=== PATIENT | female | born 1935 | race Caucasian/White ===

== ENCOUNTER 2018-02-27 15:40 | Emergency (ER) | payer MEDICARE, SELFPAY ==
--- NOTE | 2018-02-27 11:26 | EKG12_ITS ---
Test Reason : Blood Pressure : / mmHG Vent. Rate : 067 BPM Atrial Rate : 067 BPM P-R Int : 162 ms QRS Dur : 086 ms QT Int : 388 ms P-R-T Axes : 053 004 042 degrees QTc Int : 409 ms Normal sinus rhythm Normal ECG Confirmed by AI MEYER, MARY CARMEN ([id number]), manuscript editor JOSSELYN DEWEY ([id number]) on 03/07/2018 6:17:02 PM Referred By: Lashae Melendrez Confirmed By:MARY CARMEN CLOUD MD
--- NOTE | 2018-02-27 15:40 | DT_ITS ---
This patient was seen during an EMR downtime February 26, 2018 - March 05, 2018. This patient may have a combination of paper and electronic documentation or all paper documentation. All documentation is viewable within the e-chart portion of [employer] for each patient visit.
--- NOTE | 2018-02-27 16:20 | CT_ITS ---
STUDY: CT BRAIN WITHOUT CONTRAST REASON FOR EXAM: Female, 82 years old. DIZZY, WEAKNESS RADIATION DOSAGE (If Supplied By Facility): CTDIvol = ( 44.99 ) mGy, DLP = ( 779.24 ) mGycm TECHNIQUE: Transaxial CT imaging of the brain was performed without administration of intravenous contrast material. COMPARISON: None. FINDINGS: Normal soft tissue structures. Normal calvarium. There are calcifications around the carotid artery. These are noted in the cavernous carotid arteries. There is mild cerebral atrophy with widening of the extra-axial spaces and ventricular dilatation. There are areas of decreased attenuation within the white matter tracts of the supratentorial brain, consistent with microvascular disease changes. Normal basal ganglia and thalami. Normal brainstem. There is mild cerebellar atrophy. There is no intracranial hemorrhage. There are no findings of an acute ischemic infarction. Normal visualized paranasal sinuses. CT/Brain/Head without Contrast IMPRESSION: Chronic involutional changes of the brain. There are no acute findings. Electronically Signed: Robby Mcallister MD at 21:36 EDT , Service support ,
[2018-03-01 18:34] LABS: Bacteria 0 SEEN /hpf (None Seen); Color, Urine Yellow (Yellow); Glucose, Dipstick Normal (Normal); Ketone-Dipstick Negative (Negative); Leukocyte Esterase-Dipstick 25 /ul (Negative); Mucous, Urine 0 SEEN /hpf (<or=2+); Nitrite-Dipstick Negative (Negative); Occult Blood-Urine Negative /ul (Negative); Protein-Dipstick Negative (Negative); Red Blood Cells-Urine 0 SEEN /hpf (0-5); Specific Gravity, Urine 1.005 (1.002-1.030); Squamous Epithelial Cells - UA 0-5 SEEN /hpf (5-10); Urine Bilirubin Dipstick Negative (Negative); Urine Clarity Clear (Clear); Urine Urobilinogen Normal (Normal); White Blood Cells 0-5 SEEN /hpf (0-5)
[2018-03-01 21:50] LABS: Anion Gap 3 (5-15); BUN 11 mg/dL (7-18); BUN/Creat Ratio 15.1 RATIO (10-20); Calcium,Total 8.7 mg/dL (8.5-10.1); Chloride 107 mmol/L (98-107); Creatinine, Serum 0.73 mg/dL (0.55-1.02); EST Glomerular Filtration Rate 81 mL/min (>60); Est Glom Filt Rate - Afr Amer 98 mL/min (>60); Glucose 84 mg/dL (74-106); Potassium 3.9 mmol/L (3.5-5.1); Sodium Level 141 mmol/L (136-145)
[2018-03-02 11:06] LABS: Hematocrit 35.8 % (37-47); Mean Corp Hgb Conc 33.5 g/gl (32-36); Mean Corpuscular Hgb 31.3 pg (27.0-32.0); Mean Corpuscular Volume 93.2 fL (81-99); Mean Platelet Vol. 9.2 fl (6.2-12.0); Platelet Count 247 K/mm3 (150-450); RBC Distribution Width CV 13.5 % (11.6-14.6); RBC Distribution Width SD 45.9 fl (35.1-43.9); Red Blood Count 3.84 M/mm3 (4.2-5.4); White Blood Count 6.2 K/mm3 (4.4-11.0)
[2018-03-02 11:07] LABS: Absolute Lymphocyte Count 2.43 X10^3/ul (0.83-4.51); Absolute Neutrophil Count 3.2 X10^3/uL (2.0-7.7); Basophil# 0.03 X10^3/uL; Basophil% 0.5 % (0-1); Eosinophil# 0.12 X10^3/uL; Eosinophils% 1.9 % (0-5); Lymphocyte # 2.43 X10^3/ul (4.0); Lymphocyte % 39.2 % (19-41); Monocyte# 0.37 X10^3/uL; Neutrophil # 3.24 X10^3/uL (2.7-7.7); Neutrophil % 52.2 % (47-70); POSITIVE COUNT NO; POSITIVE DIFFERENTIAL NO; POSITIVE MORPHOLOGY NO
== END 2018-02-27 19:40 | disposition home or self-care (01) ==
LOC: ED 03-01 08:02
PROVIDERS: Emergency Provider Emergency Medicine; Family Provider Internal Medicine; PCP Internal Medicine
DX: R42 Dizziness and giddiness (principal); R53.83 Other fatigue; R53.81 Other malaise; F41.9 Anxiety disorder, unspecified; Z79.899 Other long term (current) drug therapy
CPT/HCPCS: 36415; 70450; 80048; 81001; 84484; 85025; 93005; 96360; 96361; 99284; J7030; A4216

== ENCOUNTER → 2018-05-21 08:26 | Outpatient (CLI) | payer MEDICARE, SELFPAY | PROVIDERS: Family Provider Internal Medicine; PCP Internal Medicine; Visit Provider Internal Medicine | DX: D64.9 Anemia, unspecified (principal) | CPT/HCPCS: 82274 ==

== ENCOUNTER → 2018-12-26 07:35 | Outpatient (CLI) | payer MEDICARE, SELFPAY ==
[2018-12-18 08:48] VITALS: BMI 22.6
--- NOTE | 2018-12-26 07:37 | US_ITS ---
STUDY: SOFT TISSUE NECK ULTRASOUND REASON FOR EXAM: Female, 83 years old. Palpable left neck lump TECHNIQUE: Ultrasound evaluation of the soft tissues of the left neck was performed with real-time and static pickens-scale imaging. COMPARISON: None. FINDINGS: There is a 1.6 x 1.4 x 1.7 cm hypoechoic structure within the supraclavicular region at the base of the left neck. There is internal vascular flow seen on color Doppler imaging. There is no definitive internal architecture. US/Head/Neck Soft Tissue IMPRESSION: 1.6 x 1.4 x 1.7 cm hypoechoic structure in the left supraclavicular fossa, likely representing ceci mass which does not demonstrate preservation of normal fatty hilum. Percutaneous sampling is recommended for definitive characterization. Electronically Signed: Humberto Hamlin MD at 5:02 EDT Tel , Service support ,
== END ==
PROVIDERS: Family Provider Internal Medicine; PCP Internal Medicine; Referring Provider Internal Medicine; Visit Provider Internal Medicine
DX: R22.1 Localized swelling, mass and lump, neck (principal)
CPT/HCPCS: 76536

== ENCOUNTER → 2019-01-03 09:30 | Outpatient (CLI) | payer MEDICARE, SELFPAY ==
[2019-01-03 09:08] VITALS: BMI 22.6
--- NOTE | 2019-01-03 09:32 | RAD_ITS ---
STUDY: X-RAY - LEFT CLAVICLE REASON FOR EXAM: Female, 83 years old. Palpable lump over the left sternoclavicular region times one month TECHNIQUE: 2 view(s) of the clavicle. COMPARISON: None. FINDINGS: Normal clavicle. There are mild arthritic changes of the acromioclavicular joint. Normal visualized sternoclavicular articulation. Normal visualized pulmonary apex. RAD/Clavicle IMPRESSION: Mild arthritic changes of the left AC joint. The region of the sternoclavicular articulation appears within normal limits. Electronically Signed: Kiel Maharaj MD at 23:53 EDT , Service support ,
== END ==
PROVIDERS: Family Provider Internal Medicine; PCP Internal Medicine; Referring Provider Surgery; Visit Provider Surgery
DX: M95.8 Other specified acquired deformities of musculoskeletal system (principal)
CPT/HCPCS: 73000

== ENCOUNTER → 2020-03-04 09:46 | Outpatient (CLI) | payer MEDICARE, SELFPAY ==
[2020-03-04 09:03] VITALS: BMI 22.6
[2020-03-04 12:29] LABS: Absolute Lymphocyte Count 1.79 X10^3/uL (0.83-4.51); Absolute Neutrophil Count 3.3 X10^3/uL (2.0-7.7); Basophil# 0.03 X10^3/uL; Basophil% 0.5 % (0-1); Eosinophil# 0.05 X10^3/uL; Eosinophils% 0.9 % (0-5); Hematocrit 35.1 % (37-47); Hemoglobin 11.5 g/dL (12.0-15.0); Lymphocyte # 1.79 X10^3/ul (4.0); Lymphocyte % 32.5 % (19-41); Mean Corp Hgb Conc 32.8 g/dL (32-36); Mean Corpuscular Hgb 31.3 pg (27.0-32.0); Mean Corpuscular Volume 95.6 fL (81-99); Mean Platelet Vol. 9.7 fl (6.2-12.0); Monocyte# 0.37 X10^3/uL; Monocyte% 6.7 % (0-10); NRBC Flagged by Analyzer 0 % (0-5); Neutrophil # 3.25 X10^3/uL (2.7-7.7); Neutrophil % 59.2 % (47-70); Platelet Count 242 K/mm3 (150-450); RBC Distribution Width CV 13.3 % (11.6-14.6); RBC Distribution Width SD 46.4 fl (35.1-43.9); Red Blood Count 3.67 M/mm3 (4.2-5.4); White Blood Count 5.5 K/mm3 (4.4-11.0)
[2020-03-04 13:08] LABS: ALB/GLOB Ratio 1.2 RATIO (0.9-2.4); AST(SGOT) 17 U/L (15-37); Alanine Aminotransfer ALT/SGPT 20 U/L (13-56); Alkaline Phosphatase 51 U/L (45-117); Anion Gap 5 (5-15); BUN 13 mg/dL (7-18); BUN/Creat Ratio 17.8 RATIO (10-20); Calcium,Total 9.1 mg/dL (8.5-10.1); Chloride 105 mmol/L (98-107); Creatinine, Serum 0.73 mg/dL (0.55-1.02); EST Glomerular Filtration Rate 81 mL/min (>60); Est Glom Filt Rate - Afr Amer 98 mL/min (>60); Globulin 3.2 g/dL (2.2-4.2); Glucose 99 mg/dL (74-106); Potassium 4.1 mmol/L (3.5-5.1); Protein, Total 7.2 g/dL (6.4-8.2); Sodium Level 139 mmol/L (136-145)
== END ==
PROVIDERS: PCP Internal Medicine; Referring Provider Internal Medicine; Visit Provider Internal Medicine
DX: I10 Essential (primary) hypertension (principal); K59.00 Constipation, unspecified
CPT/HCPCS: 36415; 80053; 85025

== ENCOUNTER → 2020-03-17 08:39 | Outpatient (CLI) | payer MEDICARE, SELFPAY ==
[2020-03-04 09:03] VITALS: BMI 22.6
--- NOTE | 2020-03-17 08:45 | BD_ITS ---
STUDY: DUAL ENERGY X-RAY ABSORPTIOMETRY / DXA REASON FOR EXAM: Female, 84 years old. 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 COMPARISON: None. FINDINGS: Lumbar Spine (L1-L4): g/cm2 (0.830) / T-score (-2.9) / Z-score (-1.0) Findings are suggestive of osteoporosis with a high fracture risk. Left Femur Total: g/cm2 (0.598) / T-score (-3.3) / Z-score (-1.0) Left Femoral Neck: g/cm2 (0.588) / T-score (-3.2) / Z-score (-0.9) Right Femur Total: g/cm2 (0.574) / T-score (-3.4) / Z-score (-1.2) Right Femoral Neck: g/cm2 (0.612) / T-score (-3.1) / Z-score (-0.7) BD/Dexa Bone Density Study IMPRESSION: The patient is considered osteoporotic as outlined below according to World Lior Organization (WHO) criteria with a high fracture risk. Reference Information: The T-score is the number of standard deviations above or below the standard which is normal for young adults at their peak bone mineral density. The World Health Organization (WHO) interprets the T-scores as follows: Above -1 Normal bone density Between -1 and -2.5 Osteopenia Equal to / or below -2.5 Osteoporosis As a practical clinical guideline, osteopenia may be graded as follows: Mild -1 through -1.5 Moderate -1.6 through -2.0 Severe -2.1 through -2.4 The Z-score is the number of standard deviations above or below age-matched controls. A Z-score of less than -1.5 would be considered abnormal. References: 1. NIH Osteoporosis and Related Bone Diseases http://www.osteo.org 2. International Society for Clinical Densitometry http://www.iscd.org 3. National Osteoporosis Foundation http://www.nof.org Electronically Signed: Joel Taylor, at 15:34 EDT , Service support ,
== END ==
PROVIDERS: PCP Internal Medicine; Referring Provider Internal Medicine; Visit Provider Internal Medicine
DX: Z78.0 Asymptomatic menopausal state (principal)
CPT/HCPCS: 77080

== ENCOUNTER → 2020-04-15 09:47 | Outpatient (CLI) | payer MEDICARE, SELFPAY ==
[2020-04-15 09:19] VITALS: BMI 22.6
[2020-04-15 14:19] LABS: Vitamin D,25 Hydroxy 30.3 ng/mL
== END ==
PROVIDERS: PCP Internal Medicine; Referring Provider Internal Medicine; Visit Provider Internal Medicine
DX: M81.0 Age-related osteoporosis without current pathological fracture (principal)
CPT/HCPCS: 36415; 82306

== ENCOUNTER → 2021-05-05 09:15 | Outpatient (CLI) | payer MEDICARE, SELFPAY ==
[2021-05-05 08:51] VITALS: BMI 22.5
[2021-05-05 12:16] LABS: Absolute Lymphocyte Count 1.85 X10^3/uL (0.83-4.51); Absolute Neutrophil Count 3.1 X10^3/uL (2.0-7.7); Basophil# 0.04 X10^3/uL; Basophil% 0.7 % (0-1); Eosinophil# 0.04 X10^3/uL; Eosinophils% 0.7 % (0-5); Hematocrit 37.3 % (37-47); Hemoglobin 12.1 g/dL (12.0-15.0); Lymphocyte # 1.85 X10^3/ul (0.83-4.51); Lymphocyte % 33.9 % (19-41); Mean Corp Hgb Conc 32.4 g/dL (32-36); Mean Corpuscular Hgb 31.3 pg (27.0-32.0); Mean Corpuscular Volume 96.4 fL (81-99); Mean Platelet Vol. 9.7 fl (6.2-12.0); Monocyte# 0.42 X10^3/uL; Monocyte% 7.7 % (0-10); NRBC Flagged by Analyzer 0 % (0-5); Neutrophil # 3.09 X10^3/uL (2.7-7.7); Neutrophil % 56.8 % (47-70); Platelet Count 261 K/mm3 (150-450); RBC Distribution Width CV 13.2 % (11.6-14.6); RBC Distribution Width SD 46.5 fl (35.1-43.9); Red Blood Count 3.87 M/mm3 (4.2-5.4); White Blood Count 5.5 K/mm3 (4.4-11.0)
[2021-05-05 12:43] LABS: ALB/GLOB Ratio 1.2 RATIO (0.9-2.4); AST(SGOT) 14 U/L (15-37); Alanine Aminotransfer ALT/SGPT 23 U/L (13-56); Albumin, Serum 3.9 g/dL (3.2-5.0); Alkaline Phosphatase 47 U/L (45-117); Anion Gap 5 (5-15); BUN 12 mg/dL (7-18); BUN/Creat Ratio 18.2 RATIO (10-20); Calcium,Total 8.6 mg/dL (8.5-10.1); Chloride 104 mmol/L (98-107); Cholesterol 225 mg/dL (200); Creatinine, Serum 0.66 mg/dL (0.55-1.02); EST Glomerular Filtration Rate 90 mL/min (>60); Est Glom Filt Rate - Afr Amer 109 mL/min (>60); Globulin 3.2 g/dL (2.2-4.2); Glucose 97 mg/dL (74-106); High Density Lipoprotein 81 mg/dL; Potassium 4.4 mmol/L (3.5-5.1); Protein, Total 7.1 g/dL (6.4-8.2); Sodium Level 139 mmol/L (136-145); Thyroid Stim Hormone (TSH) 0.47 uIU/mL (0.358-3.74); Triglycerides 103 mg/dL; Very Low Density Lipoprotein 21 mg/dL (5-40)
[2021-05-05 14:17] LABS: Vitamin D,25 Hydroxy 33.8 ng/mL
== END ==
PROVIDERS: PCP Internal Medicine; Referring Provider Nurse Practitioner Family; Visit Provider Nurse Practitioner Family
DX: K58.9 Irritable bowel syndrome, unspecified (principal); I10 Essential (primary) hypertension; F41.9 Anxiety disorder, unspecified; E55.9 Vitamin D deficiency, unspecified
CPT/HCPCS: 36415; 80053; 80061; 82306; 84443; 85025

== ENCOUNTER → 2022-05-09 | Outpatient (CLI) | payer MEDICARE, SELFPAY ==
[2022-05-09 12:03] LABS: Absolute Lymphocyte Count 1.62 X10^3/uL (0.83-4.51); Absolute Neutrophil Count 3.6 X10^3/uL (2.0-7.7); Basophil# 0.03 X10^3/uL; Basophil% 0.5 % (0-1); Eosinophil# 0.05 X10^3/uL; Eosinophils% 0.9 % (0-5); Hematocrit 36.5 % (37-47); Hemoglobin 11.5 g/dL (12.0-15.0); Lymphocyte # 1.62 X10^3/ul (0.83-4.51); Lymphocyte % 28.6 % (19-41); Mean Corp Hgb Conc 31.5 g/dL (32-36); Mean Corpuscular Hgb 30.9 pg (27.0-32.0); Mean Corpuscular Volume 98.1 fL (81-99); Mean Platelet Vol. 9.9 fl (6.2-12.0); Monocyte# 0.37 X10^3/uL; Monocyte% 6.5 % (0-10); NRBC Flagged by Analyzer 0 % (0-5); Neutrophil # 3.58 X10^3/uL (2.7-7.7); Neutrophil % 63.3 % (47-70); Platelet Count 277 K/mm3 (150-450); RBC Distribution Width CV 13.4 % (11.6-14.6); RBC Distribution Width SD 48.2 fl (35.1-43.9); Red Blood Count 3.72 M/mm3 (4.2-5.4); White Blood Count 5.7 K/mm3 (4.4-11.0)
[2022-05-09 12:21] LABS: AST(SGOT) 15 U/L (15-37); Alanine Aminotransfer ALT/SGPT 17 U/L (13-56); Albumin, Serum 3.5 g/dL (3.2-5.0); Alkaline Phosphatase 48 U/L (45-117); Anion Gap 4 (5-15); BUN 11 mg/dL (7-18); BUN/Creat Ratio 16.4 RATIO (10-20); Calcium,Total 9.1 mg/dL (8.5-10.1); Chloride 108 mmol/L (98-107); Creatinine, Serum 0.67 mg/dL (0.55-1.02); EST Glomerular Filtration Rate 89 mL/min (>60); Est Glom Filt Rate - Afr Amer 107 mL/min (>60); Globulin 3.6 g/dL (2.2-4.2); Glucose 104 mg/dL (74-106); Potassium 4.7 mmol/L (3.5-5.1); Protein, Total 7.1 g/dL (6.4-8.2); Sodium Level 140 mmol/L (136-145)
== END | disposition home or self-care (01) ==
LOC: BIMLAB 10:25
PROVIDERS: PCP Internal Medicine; Referring Provider Internal Medicine; Visit Provider Internal Medicine
DX: L03.90 Cellulitis, unspecified (principal); M81.0 Age-related osteoporosis without current pathological fracture; R35.1 Nocturia
CPT/HCPCS: 36415; 80053; 82306; 85025

== ENCOUNTER → 2022-05-10 | Outpatient (CLI) | payer MEDICARE, SELFPAY ==
[2022-05-10 10:46] LABS: Bacteria 0 SEEN /hpf (None Seen); Mucous, Urine 0 SEEN /hpf (<or=2+); Red Blood Cells-Urine 0 SEEN /hpf (0-5); Squamous Epithelial Cells - UA 0 SEEN /hpf (5-10); White Blood Cells 0 SEEN /hpf (0-5)
[2022-05-10 12:39] LABS: Color, Urine Yellow (Yellow); Glucose, Dipstick Normal (Normal); Ketone-Dipstick Negative (Negative); Leukocyte Esterase-Dipstick 25 /ul (Negative); Nitrite-Dipstick Negative (Negative); Occult Blood-Urine Negative /ul (Negative); Protein-Dipstick Negative (Negative); Specific Gravity, Urine 1.015 (1.002-1.030); Urine Bilirubin Dipstick Negative (Negative); Urine Clarity Clear (Clear); Urine Urobilinogen Normal (Normal)
== END | disposition home or self-care (01) ==
LOC: LABSPEC 10:44
PROVIDERS: PCP Internal Medicine; Referring Provider Internal Medicine; Visit Provider Internal Medicine
DX: R35.1 Nocturia (principal)
CPT/HCPCS: 81001

== ENCOUNTER → 2022-07-05 | Outpatient (CLI) | payer MEDICARE, SELFPAY ==
[2022-07-05 16:42] LABS: Absolute Lymphocyte Count 2.49 X10^3/uL (0.83-4.51); Basophil# 0.05 X10^3/uL; Basophil% 0.8 % (0-1); Eosinophil# 0.07 X10^3/uL; Eosinophils% 1.1 % (0-5); Hematocrit 34.3 % (37-47); Hemoglobin 11.3 g/dL (12.0-15.0); Lymphocyte # 2.49 X10^3/ul (0.83-4.51); Lymphocyte % 40.8 % (19-41); Mean Corp Hgb Conc 32.9 g/dL (32-36); Mean Corpuscular Hgb 31.6 pg (27.0-32.0); Mean Corpuscular Volume 95.8 fL (81-99); Mean Platelet Vol. 9.5 fl (6.2-12.0); Monocyte# 0.51 X10^3/uL; Monocyte% 8.3 % (0-10); NRBC Flagged by Analyzer 0 % (0-5); Neutrophil # 2.98 X10^3/uL (2.7-7.7); Neutrophil % 48.8 % (47-70); Platelet Count 270 K/mm3 (150-450); RBC Distribution Width CV 13.8 % (11.6-14.6); Red Blood Count 3.58 M/mm3 (4.2-5.4); White Blood Count 6.1 K/mm3 (4.4-11.0)
[2022-07-05 16:54] LABS: T4 Free Direct 1.02 ng/dL (0.76-1.46); Thyroid Stim Hormone (TSH) 0.46 uIU/mL (0.358-3.74)
== END | disposition home or self-care (01) ==
LOC: BIMLAB 15:38
PROVIDERS: PCP Internal Medicine; Visit Provider Internal Medicine
DX: L03.90 Cellulitis, unspecified (principal); F41.9 Anxiety disorder, unspecified; K59.00 Constipation, unspecified
CPT/HCPCS: 36415; 84439; 84443; 85025

== ENCOUNTER 2024-04-02 11:00 | Outpatient (RCR) | payer MEDICARE, SELFPAY ==
--- NOTE | 2024-03-22 10:27 | HP.PTEVAL ---
Patient's Visit Information Visit Information Visit Information: LILIA BORJA is a 88 year old F referred to Physical Therapy by Dr. Bibi Gold MD with a diagnosis of BPPV. Date of Evaluation: 03/22/24 Physical Therapist: Jass Ferreira, DPT, OCS, CSCS Visit Plan Frequency: 1-2x /Week Duration: 4-6 Weeks Plan: 1-2x/week x 4 weeks for positional treatments and then balance as needed, oculomotor. R modified marc today at IE and balance education and care. Subjective Subjective: Its a balance issue. Feels unsteady intermittently without reason. Gets weak and shaky and imbalanced. Seen ENT and eye doctor and those are OK. Bending over can preciptate, also reading sometimes, looking down sometimes and just turning head sometimes. It lasts a couple minutes to 10. Can get it sitting but not lying down. This has been happening for months. Sleep is fine. No pain, but sometimes in R side. No spinning No neuropathy but bottom of feet dont feel right but no DM. Not employed Basic ADLs are getting done, outdoor stuff especially bending to weed is limited. Unsteady. One fall 2 months ago going up steps without a rail carrying something catching toe on step. Hobbies: none, take care of house. Does some ROm exercises in am. Steps at home with railing are good. Objective Objective: Walks slow but steady into PT, no AD needed. Trasnfers I with UE. Steps with rail I. Good cervical AROM without pain, Full UE AROM without pain and 4/5 strength. - L HD + R HD with up torsional slight nystagmus, eye discomfort and dizzyness. Treated with R modified marc. Balance/Special Test Scores Functional Gait Assessment Score: 22 % Disability: 26.6700 CATSIB Score (Max score 120 seconds): 98 Dizziness Score: 50 Goals Goal 1:: abolish dizzy feeling with head movements. Goal Time Frame: 2-4 Weeks Goal 2:: FGA Goal Time Frame: 2-4 Weeks Goal 3:: Pt feel 755 better in overall balance and dizzyness. Goal Time Frame: 4-6 Weeks Goal 4:: 16 or less DHI score Goal Time Frame: 4-6 Weeks Rehabilitation Potential Physical Therapy Diagnosis: dizzyness and balance deficits. Rehabilitation Potential: Good Anticipated Interventions Patient/Client Instruction: Educate patient on: Condition and Risk Factors For the Purpose of:: To increase tolerance to activity/condition/position and To improve gait and locomotor functions Therapeutic Exercise to Include: Balance training Comment: psitional and vestibular For the Purpose of:: To increase tolerance to activity/condition/position and To improve gait and locomotor functions Text: Thank you for the opportunity to evaluate your patient. For Medicare and Medicare HMO plans, please review the plan of care and approve it. It will need to be FAXED BACK to us at [phone] for Medicare purposes. For Medicare only, by signing this I certify the plan of care. Please let me know if there are questions or concerns regarding this plan of care. Physician Signature: Date:
--- NOTE | 2024-06-17 10:20 | HP.PT.NRP ---
Patient Information Patient Information: LILIA BORJA was seen in my office for initial evaluation on 03/22/24. The following Plan of Care was established for this patient: POC Established Initial Frequency: 1-2x /Week Initial Duration: 4-6 Weeks Anticipated Interventions Patient/Client Instruction: Educate patient on: Condition and Risk Factors For the Purpose of:: To increase tolerance to activity/condition/position and To improve gait and locomotor functions Therapeutic Exercise to Include: Balance training For the Purpose of:: To increase tolerance to activity/condition/position and To improve gait and locomotor functions Last Seen Last Seen: This patient was last seen in our office 04/02/24. Pertinent comments regarding their Physical therapy will appear below: Pt seen for 3 visits of vestibular but not improving, was to f/u one more time but did not attend and has been to doctor since then At this point, it has been over two months and I will discontinue from my care. At this point I will be discontinuing this patient from physical therapy. I would be happy to see this patient again in the future if found appropriate by the physician. Thank you! Jass Ferreira, DPT, OCS, CSCS Balance/Gait/Functional tests Balance/Special Test Scores Functional Gait Assessment Score: 22 % Disability: 26.6700 CATSIB Score (Max score 120 seconds): 98 Dizziness Score: 50
== END 2024-04-02 19:00 | disposition home or self-care (01) ==
LOC: PT 11:00
PROVIDERS: PCP Internal Medicine; Referring Provider Family Medicine; Visit Provider Family Medicine
DX: H81.10 Benign paroxysmal vertigo, unspecified ear (principal)
CPT/HCPCS: 97161; 97530

== ENCOUNTER → 2024-04-05 | Outpatient (CLI) | payer MEDICARE, SELFPAY ==
[2024-04-05 17:35] LABS: Absolute Lymphocyte Count 2.08 X10^3/uL (0.83-4.51); Absolute Neutrophil Count 2.7 X10^3/uL (2.0-7.7); Basophil# 0.04 X10^3/uL; Basophil% 0.8 % (0-1); Eosinophil# 0.06 X10^3/uL; Eosinophils% 1.1 % (0-5); Hematocrit 34.5 % (37-47); Hemoglobin 11.1 g/dL (12.0-15.0); Lymphocyte # 2.08 X10^3/ul (0.83-4.51); Lymphocyte % 39.5 % (19-41); Mean Corp Hgb Conc 32.2 g/dL (32-36); Mean Corpuscular Hgb 31.3 pg (27.0-32.0); Mean Corpuscular Volume 97.2 fL (81-99); Mean Platelet Vol. 9.8 fl (6.2-12.0); Monocyte# 0.43 X10^3/uL; Monocyte% 8.2 % (0-10); NRBC Flagged by Analyzer 0 % (0-5); Neutrophil # 2.66 X10^3/uL (2.7-7.7); Neutrophil % 50.4 % (47-70); Platelet Count 259 K/mm3 (150-450); RBC Distribution Width CV 13.3 % (11.6-14.6); RBC Distribution Width SD 47.3 fl (35.1-43.9); Red Blood Count 3.55 M/mm3 (4.2-5.4); White Blood Count 5.3 K/mm3 (4.4-11.0)
[2024-04-05 17:37] LABS: Color, Urine Yellow (Yellow); Glucose, Dipstick Normal (Normal); Ketone-Dipstick Negative (Negative); Leukocyte Esterase-Dipstick 500 /ul (Negative); Nitrite-Dipstick Negative (Negative); Occult Blood-Urine 25 /ul (Negative); Protein-Dipstick 15 mg/dl (Negative); Specific Gravity, Urine 1.015 (1.002-1.030); Urine Bilirubin Dipstick Negative (Negative); Urine Clarity Clear (Clear); Urine Urobilinogen Normal (Normal)
[2024-04-05 17:53] LABS: Vitamin B12 694 pg/mL (211-911); Vitamin D,25 Hydroxy 64.4 ng/mL
[2024-04-05 18:01] LABS: ALB/GLOB Ratio 1.3 RATIO (0.9-2.4); AST(SGOT) 15 U/L (15-37); Alanine Aminotransfer ALT/SGPT 16 U/L (13-56); Albumin, Serum 3.8 g/dL (3.2-5.0); Alkaline Phosphatase 46 U/L (45-117); Anion Gap 5 (5-15); BUN 9 mg/dL (7-18); BUN/Creat Ratio 13.1 RATIO (10-20); Chloride 104 mmol/L (98-107); Creatinine, Serum 0.68 mg/dL (0.55-1.02); EST Glomerular Filtration Rate 86 mL/min (>60); Est Glom Filt Rate - Afr Amer 104 mL/min (>60); Glucose 105 mg/dL (74-106); Potassium 3.7 mmol/L (3.5-5.1); Protein, Total 6.8 g/dL (6.4-8.2); Sodium Level 138 mmol/L (136-145)
== END | disposition home or self-care (01) ==
LOC: MTLAB 15:51
PROVIDERS: PCP Family Medicine; Referring Provider Family Medicine; Visit Provider Family Medicine
DX: R10.31 Right lower quadrant pain (principal); E55.9 Vitamin D deficiency, unspecified
CPT/HCPCS: 36415; 80053; 81002; 82306; 82607; 85025

== ENCOUNTER 2024-04-28 16:48 | Emergency (ER) | payer MEDICARE, SELFPAY ==
[2024-04-28 16:49] VITALS: BP 165/105; PULSE 90; RESP 16; TEMP 36.6; O2SAT 97; BMI 22.1
--- NOTE | 2024-04-28 17:07 | CT_ITS ---
STUDY: CT Abdomen And Pelvis W/ Contrast Injection 04/28/2024 8:04 PM REASON FOR EXAM: Female, 88 years old. Abdominal pain RLQ abdominal pain -- IV PO Contrast Individualized dose optimization techniques were used for this CT. COMPARISON: None. TECHNIQUE: CT Abdomen And Pelvis W/ Contrast Injection Oral and amp; IV Gastrografin and amp; 100mL [id number] FINDINGS: There are atherosclerotic calcifications of visualized coronary arteries. The visualized portions of the heart are within normal limits. Normal liver. Normal gallbladder and extrahepatic biliary system. Normal spleen. Normal pancreas. Normal bilateral adrenal glands. No acute findings of the right kidney. No acute findings of the left kidney. There is a small hiatal hernia. Normal small intestine. There are multiple colonic diverticula consistent with diverticulosis. The appendix is visualized and appears normal. There are calcifications of the abdominal aorta. This is consistent for atherosclerotic disease. There is NO abdominal aortic aneurysm. Vascular workup can be obtained based on clinical correlation. Normal inferior vena cava. Subcentimeter mesenteric lymph nodes. Normal urinary bladder. The uterus is lobulated in contour. There are multiple partially calcified masses in the uterus. This is consistent for a fibroid/ myomatous uterus. Normal abdominal wall. There are diffuse degenerative changes of the visualized lumbar spine. There is bilateral neural foraminal stenosis at L4-5 . There is a Grade 1 anterolisthesis of L4 on L5. CT/Abdomen/Pelvis WITH Contrast IMPRESSION: (NOT LISTED IN ORDER OF SIGNIFICANCE) Unremarkable appendix. There are multiple colonic diverticula consistent with diverticulosis. Other findings as above. Electronically Signed: Robby Mcallister MD at 20:07 EDT ,
--- NOTE | 2024-04-28 17:08 | EDS_ITS ---
HPI HPI - GI History of Present Illness Chief Complaint: Abd Pain Detail of Chief Complaint: Abdominal pain Informant: patient Abdominal Pain/Flank Pain Current Severity: 03/04 Narrative Narrative: Patient presents emergency department complaint of abdominal pain that started 2 months ago. Patient states the pains been off-and-on. She seen her primary care physician who ordered lab work that apparently was unremarkable and also had a CT scan of the abdomen pelvis ordered with contrast but patient did not feel like she could drink the contrast so she never had the scan. Patient states that pain can last up to an hour sometimes. Typically if she has a bowel movement it seems to help resolve the pain. She denies any blood in her stool or black tarry stool. She denies urinary symptoms other than frequency. She has had no fevers. She had some nausea and decreased appetite. She states she is lost about 10 pounds in the last 2 months. Patient is concerned about possibly an ovary or appendicitis. [facility] Medical History (Updated 04/28/24 @ 20:[address] Malena Proctor, DO) Anemia Screening for thyroid disorder Nocturia Osteoporosis Tinnitus Dizziness and giddiness Anxiety IBS (irritable bowel syndrome) Arthritis Home Medications ?Medication ?Instructions ?Recorded ?Last Taken ?Type multivitamin 1 tab PO DAILY 01/03/19 Unknown History latanoprost 0.005 % eye drops 1 drp ophthalmic (eye) DAILY 07/27/20 Unknown History disability placard #1 ea 05/05/21 Unknown Rx lorazepam 0.5 mg tablet (Ativan) 0.5 mg PO DAILY PRN anxiety #30 09/23/21 Unknown Rx tabs mecobalamin (vitamin B12) 5,000 5,000 mcg PO DAILY 09/23/21 Unknown History mcg lozenge soft lens rinse,store solution 05/09/22 Unknown History Allergy/AdvReac Type Severity Reaction Status Date / Time No Known Allergies Allergy Verified 04/28/24 16:49 Family History Mother Anxiety Father Heart disease Myocardial infarction Surgical History History of eye surgery History of tonsillectomy Social History Smoking Status: Never smoker alcohol intake: never what type of physical activity do you participate in: yoga frequency: daily ROS ROS ED Review of Systems ROS Unobtainable: other Constitutional Constitutional ED: Reports lethargy; Denies chills, fever(s), sweats or weight loss Eyes Eyes: Denies blurry vision, change in vision or diplopia ENT ENT ED: Denies rhinorrhea or sore throat Cardiovascular Cardiovascular: Denies chest pain, orthopnea or racing heartbeat Respiratory/Chest Respiratory/Chest: Denies cough, dyspnea, dyspnea on exertion, orthopnea or sputum Gastrointestinal Gastrointestinal: Reports abdominal pain, nausea and other Details: Anorexia ; Denies diarrhea or vomiting Genitourinary Genitourinary ED: Denies dysuria, hematuria or urinary frequency Musculoskeletal Musculoskeletal: Denies arthralgias, back pain, myalgias or neck pain Integumentary Denies abscess, Abrasions or rash Neurologic Neurologic: Denies headache(s) or weakness Psychiatric Psychiatric: Denies anxiety, depression or suicidal thoughts Endocrine Endocrinology: Denies polydipsia, polyphagia or polyuria Hematologic/Lymphatic Hematologic/Lymphatic: Denies easy bleeding, easy bruising or lymphadenopathy Allergic/Immunologic Allergic/Immunologic ED: Denies mouth swelling, tongue swelling or urticaria EXAM Physical Exam Const Vital Signs: 04/28/24 16:49 04/28/24 18:48 Temperature 97.8 F Temperature Source Temporal Pulse Rate 90 78 Respiratory Rate 16 18 Blood Pressure 165/105 H 170/87 H Blood Pressure Mean 125 114 Pulse Ox 97 97 Oxygen Delivery Method Room Air Room Air Positive well nourished and well developed General Appearance ED: well developed and NAD HEENT Reports TM's clear and moist mucous membranes normocephalic and atraumatic; Negative for trauma or tenderness Tympanic Membrane ED: Yes TM's clear Eyes PERRL and EOMs intact bilaterally General Eye ED: Negative for pale conjunctiva or scleral icterus Neck no lymphadenopathy, supple and no JVD General: Negative for tenderness Chest Wall inspection of chest normal and palpation of chest normal Chest: Negative for tenderness Resp normal respiratory effort and clear to auscultation bilaterally Effort and Inspection: Negative for respiratory distress or pain with movement Auscultation: Negative for rhonchi, wheezes or diminished lung sounds Cardio regular rate, regular rhythm, S1 normal heart sound, S2 normal heart sound and no murmurs Peripheral Pulses: pulses 2+ throughout GI normal to inspection, nondistended, normoactive bowel sounds, soft to palpation, non-distended and no masses GI Narrative: Tenderness palpation over the right lower quadrant with some mild guarding. There is no rebound, rigidity, or perineal signs. No masses palpated. Back/Spine no CVA tenderness and no thoracic nor lumbar tenderness Extremity normal to inspection General Extremety ED: Negative for edema General Extremity: Negative for edema Neuro oriented x3, CN's II-XII intact bilaterally, no sensory deficits noted and gait normal Sensorium / Orientation: awake, alert, oriented to person, oriented to place and oriented to time Motor Exam: strength 5/5 throughout and strength abnormal Psych mental status grossly normal Skin no rashes or lesions noted and no wounds MDM MDM MDM Narrative Medical decision making narrative: Patient presents with ongoing abdominal pain that she has had for several months now. Pain usually right lower quadrant and intermittent. She has had some weight loss. In the differential would be sequela of acute appendicitis versus diverticulitis or UTI. Also in the differential would be malignancy. IV line established. CBC with differential obtained showed white count 6.3 with hemoglobin 11.4 and platelet count of 268. Chemistries unremarkable. LFTs were normal. Lactate normal at 1.4. Urinalysis was normal. CT scan of the abdomen pelvis with IV contrast and p.o. contrast essentially showed a fibroid uterus and some diverticulosis but no other significant abnormalities. At this point discussed results with patient and her . Recommended she follow-up with gastroenterology as she has not had a colonoscopy in 14 years. Also recommended she follow-up with [facility] [employer]. Lab Data Attestation: I reviewed the patient's lab results. Labs: Laboratory Results - last 24 hr 04/28/24 04/28/24 17:23 18:22 WBC 6.3 RBC 3.62 L Hgb 11.4 L Hct 35.1 L MCV 97.0 MCH 31.5 MCHC 32.5 RDW Std Deviation 47.9 H RDW Coeff of Teo 13.6 Plt Count 268 MPV 9.4 Immature Gran % (Auto) 0.200 Neut % (Auto) 49.0 Lymph % (Auto) 41.5 H Stone % (Auto) 7.1 Eos % (Auto) 1.1 Baso % (Auto) 1.1 H Absolute Neuts (auto) 3.1 Absolute Lymphs (auto) 2.62 Nucleated RBC % 0 Sodium 141 Potassium 3.8 Chloride 107 Carbon Dioxide 30.0 Anion Gap 4 L BUN 13 Creatinine 0.73 Estim Creat Clear Calc 34.91 Est GFR (MDRD) Af Amer 97 Est GFR (MDRD) Non-Af 80 BUN/Creatinine Ratio 17.9 Glucose 115 H Lactic Acid 1.4 Calcium 8.9 Total Bilirubin 0.50 AST 14 L ALT 16 Alkaline Phosphatase 45 Total Protein 7.0 Albumin 3.8 Globulin 3.2 Albumin/Globulin Ratio 1.2 Urine Color Yellow Urine Clarity Clear Urine pH 6.5 Ur Specific [place] 1.010 Urine Protein Negative Urine Glucose (UA) Normal Urine Ketones Negative Urine Occult Blood 10 H Urine Nitrite Negative Urine Bilirubin Negative Urine Urobilinogen Normal Ur Leukocyte Esterase 500 H Urine RBC 0 SEEN Urine WBC 0-5 SEEN Ur Squamous Epith Cells 0 SEEN Urine Bacteria 0 SEEN Urine Mucus 0 SEEN Radiography Diagnostic Testing: Clinical Impression(s) from Imaging Studies Abdomen/Pelvis CT 04/28/24 17:07 IMPRESSION: (NOT LISTED IN ORDER OF SIGNIFICANCE) Unremarkable appendix. There are multiple colonic diverticula consistent with diverticulosis. Other findings as above. Electronically Signed: Robby Mcallister MD at 20:07 EDT Reading Location ID and State: [facility] / [place] , Service support , Discharge Plan Triage Chief Complaint: Abd Pain ED Provider: Malena Proctor Dx/Rx/DC Orders Clinical Impression: Abdominal pain Instructions: ED Abdominal Pain Unkn Cause Fem Prescriptions: No Action multivitamin tablet 1 tab PO DAILY latanoprost 0.005 % drops 1 drp OPHTHALMIC DAILY (DME) disability placard See Rx Instructions .ROUTE .MEDSUPPLY Qty: 1 0RF Rx Instructions: As directed, Length of time: 5 years mecobalamin (vitamin B12) 5,000 mcg lozenge 5,000 mcg PO DAILY Rx Instructions: allow to dissolve in mouth OR may chew lightly before swallowing lorazepam [Ativan] 0.5 mg tablet 0.5 mg PO DAILY PRN (Reason: anxiety) Qty: 30 0RF (DME) soft lens rinse,store solution Drops See Rx Instructions .Route Rx Instructions: As directed Primary Care Provider: Bibi Gold Referrals: Bibi Gold MD [Primary Care Provider] - 3-5 Days Efren Cabrera DO [Med Staff - Active Staff] - 5-7 Days Activity Restrictions/Additional Instructions: Etiology of your abdominal pain unclear. Please follow-up with [facility]ESSION[facility] as well as possibly gastroenterology and your primary care physician if pain persists. Print Language: Hungarian Disposition Disposition: Home, Self Care
[2024-04-28] MEDS: 0.9% Normal Saline (1000mL) 1,000 ML 125 ML IV (17:27)
[2024-04-28 17:45] LABS: Absolute Lymphocyte Count 2.62 X10^3/uL (0.83-4.51); Absolute Neutrophil Count 3.1 X10^3/uL (2.0-7.7); Basophil# 0.07 X10^3/uL; Basophil% 1.1 % (0-1); Eosinophil# 0.07 X10^3/uL; Eosinophils% 1.1 % (0-5); Hematocrit 35.1 % (37-47); Hemoglobin 11.4 g/dL (12.0-15.0); Lymphocyte # 2.62 X10^3/ul (0.83-4.51); Lymphocyte % 41.5 % (19-41); Mean Corp Hgb Conc 32.5 g/dL (32-36); Mean Corpuscular Hgb 31.5 pg (27.0-32.0); Mean Platelet Vol. 9.4 fl (6.2-12.0); Monocyte# 0.45 X10^3/uL; Monocyte% 7.1 % (0-10); NRBC Flagged by Analyzer 0 % (0-5); Neutrophil # 3.09 X10^3/uL (2.7-7.7); Platelet Count 268 K/mm3 (150-450); RBC Distribution Width CV 13.6 % (11.6-14.6); RBC Distribution Width SD 47.9 fl (35.1-43.9); Red Blood Count 3.62 M/mm3 (4.2-5.4); White Blood Count 6.3 K/mm3 (4.4-11.0)
[2024-04-28 17:57] LABS: ALB/GLOB Ratio 1.2 RATIO (0.9-2.4); AST(SGOT) 14 U/L (15-37); Alanine Aminotransfer ALT/SGPT 16 U/L (13-56); Albumin, Serum 3.8 g/dL (3.2-5.0); Alkaline Phosphatase 45 U/L (45-117); Anion Gap 4 (5-15); BUN 13 mg/dL (7-18); BUN/Creat Ratio 17.9 RATIO (10-20); Calcium,Total 8.9 mg/dL (8.5-10.1); Chloride 107 mmol/L (98-107); Creatinine, Serum 0.73 mg/dL (0.55-1.02); EST Glomerular Filtration Rate 80 mL/min (>60); Est Glom Filt Rate - Afr Amer 97 mL/min (>60); Estimated Creatinine Clearance 34.91 ml/min; Globulin 3.2 g/dL (2.2-4.2); Glucose 115 mg/dL (74-106); Lactic Acid 1.4 mmol/L (0.4-1.9); Potassium 3.8 mmol/L (3.5-5.1); Sodium Level 141 mmol/L (136-145)
[2024-04-28 18:28] LABS: Bacteria 0 SEEN /hpf (None Seen); Mucous, Urine 0 SEEN /hpf (<or=2+); Red Blood Cells-Urine 0 SEEN /hpf (0-5); Squamous Epithelial Cells - UA 0 SEEN /hpf (5-10)
[2024-04-28 18:29] LABS: Color, Urine Yellow (Yellow); Glucose, Dipstick Normal (Normal); Ketone-Dipstick Negative (Negative); Leukocyte Esterase-Dipstick 500 /ul (Negative); Nitrite-Dipstick Negative (Negative); Occult Blood-Urine 10 /ul (Negative); Protein-Dipstick Negative (Negative); Urine Bilirubin Dipstick Negative (Negative); Urine Clarity Clear (Clear); Urine Urobilinogen Normal (Normal); Urine pH 6.5 (5.0 - 8.0)
[2024-04-28 18:36] LABS: White Blood Cells 0-5 SEEN /hpf (0-5)
[2024-04-28 18:48] VITALS: BP 170/87; PULSE 78; RESP 18; O2SAT 97
[2024-04-28] MEDS: LORazepam 2 MG/ML Syringe 0.5 MG IV (18:49)
[2024-04-28 20:00] VITALS: BP 109/50; PULSE 68; RESP 18; TEMP 36.6; O2SAT 97
== END 2024-04-28 20:30 | disposition home or self-care (01) ==
PROVIDERS: Emergency Provider Emergency Medicine; PCP Family Medicine; Visit Provider Emergency Medicine
DX: R10.9 Unspecified abdominal pain (principal); K57.30 Diverticulosis of large intestine without perforation or abscess without bleeding; D25.9 Leiomyoma of uterus, unspecified; Z79.899 Other long term (current) drug therapy
CPT/HCPCS: 74177; 80053; 81001; 83605; 85025; 96374; 99283; J7030; Q9967; A4216

== ENCOUNTER → 2024-06-17 | Outpatient (CLI) | payer MEDICARE, SELFPAY ==
--- NOTE | 2024-06-17 09:01 | RAD_ITS ---
STUDY: X-RAY - ESOPHAGUS (BARIUM SWALLOW) WITH FLUOROSCOPY REASON FOR EXAM: Female, 89 years old. GERD TECHNIQUE: 57 fluoroscopic images view(s) of the esophagus were obtained following swallowing of barium. FLUOROSCOPY TIME (if supplied): (50 seconds) minutes/seconds. 3.1 mGy. COMPARISON: None. FINDINGS: There is no demonstrated esophageal foreign body. There is no demonstrated stricture or mucosal abnormality. Normal gastroesophageal junction, without a demonstrated hiatal hernia. The patient ingested a 12 mm tablet of barium without any difficulty. There is atherosclerotic tortuosity of the aortic arch and descending thoracic aorta. Normal visualized pulmonary parenchyma. There are diffuse degenerative changes of the visualized thoracic spine. RAD/Esophagus Single Contrast IMPRESSION: Normal plain film x-ray examination (barium swallow) of the esophagus. Electronically Signed: Joel Taylor MD at 12:34 EDT ,
== END | disposition home or self-care (01) ==
LOC: RAD 08:52
PROVIDERS: PCP Family Medicine; Referring Provider Otolaryngology; Visit Provider Otolaryngology
DX: R13.10 Dysphagia, unspecified (principal); K21.9 Gastro-esophageal reflux disease without esophagitis
CPT/HCPCS: 74220

== ENCOUNTER → 2025-03-11 | Outpatient (CLI) | payer MEDICARE, SELFPAY ==
[2025-03-11 17:56] LABS: Absolute Lymphocyte Count 2.18 X10^3/uL (0.83-4.51); Absolute Neutrophil Count 2.2 X10^3/uL (2.0-7.7); Basophil# 0.05 X10^3/uL; Eosinophil# 0.08 X10^3/uL; Eosinophils% 1.7 % (0-5); Hematocrit 33.2 % (37-47); Hemoglobin 10.8 g/dL (12.0-15.0); Lymphocyte # 2.18 X10^3/ul (0.83-4.51); Lymphocyte % 45.1 % (19-41); Mean Corp Hgb Conc 32.5 g/dL (32-36); Mean Corpuscular Volume 98.2 fL (81-99); Mean Platelet Vol. 9.4 fl (6.2-12.0); Monocyte# 0.35 X10^3/uL; Monocyte% 7.2 % (0-10); NRBC Flagged by Analyzer 0 % (0-5); Neutrophil # 2.16 X10^3/uL (2.7-7.7); Neutrophil % 44.8 % (47-70); Platelet Count 237 K/mm3 (150-450); RBC Distribution Width CV 13.5 % (11.6-14.6); RBC Distribution Width SD 47.8 fl (35.1-43.9); Red Blood Count 3.38 M/mm3 (4.2-5.4); White Blood Count 4.8 K/mm3 (4.4-11.0)
[2025-03-11 18:48] LABS: ALB/GLOB Ratio 1.8 RATIO (0.9-2.4); AST(SGOT) 20 U/L (<=31); Alanine Aminotransfer ALT/SGPT 10 U/L (<=34); Albumin, Serum 4.2 g/dL (3.4-4.8); Alkaline Phosphatase 49 U/L (35-104); Anion Gap 9 (5-15); BUN 18 mg/dL (4-19); BUN/Creat Ratio 24.9 RATIO (10-20); Carbon Dioxide 27.6 mmol/L (21.0-32.0); Chloride 103 mmol/L (98-108); Creatinine, Serum 0.74 mg/dL (0.70-1.20); EST Glomerular Filtration Rate 77 (>60); Globulin 2.4 g/dL (2.2-4.2); Glucose 102 mg/dL (70-99); Potassium 4.2 mmol/L (3.3-5.1); Protein, Total 6.5 g/dL (5.9-8.4); Sodium Level 139 mmol/L (133-145); Total Bilirubin 0.28 mg/dL (0.00-1.30); Vitamin B12 618 pg/mL (180-914); Vitamin D,25 Hydroxy 46.6 ng/mL (30-100)
== END | disposition home or self-care (01) ==
LOC: BFHLAB 15:25
PROVIDERS: PCP Family Medicine; Visit Provider Family Medicine
DX: E53.8 Deficiency of other specified B group vitamins (principal); E55.9 Vitamin D deficiency, unspecified; H81.10 Benign paroxysmal vertigo, unspecified ear; K59.00 Constipation, unspecified
CPT/HCPCS: 36415; 80053; 82306; 82607; 85025